=== PATIENT | female | born 1985 | race Caucasian/White ===

== ENCOUNTER 2019-03-21 09:07 | Emergency (ER) | payer OTHER ==
[~2019-03-21] VITALS: Ht 157.5 cm; Wt 68.0 kg
[~2019-03-21 09:07] MED LIST: BACTRIM DS TAB1 EACH PO; CELEXA 20 MG TA20 M1 PO; NORCO 5-325 TA1 EACH PO; PREDNISONE 20 M20 MG PO; SYNTHROID125 MCG PO; VALIUM5 MG PO
[2019-03-21] MEDS ORDERED: METFORMIN HCL500 M3 PO (09:19)
[2019-03-21] MEDS ORDERED: SPIRONOLACTONE25 MG PO (09:19)
[2019-03-21 09:35] LABS: URINE BILIRUBIN NEGATIVE (Negative); URINE BLOOD TRACE (Negative); URINE CLARITY SL CLOUDY; URINE COLOR YELLOW; URINE GLUCOSE-RANDOM NEGATIVE (Negative); URINE KETONES NEGATIVE (Negative); URINE LEUKOCYTES-REFLEX TRACE (Negative); URINE NITRITE-REFLEX NEGATIVE (Negative); URINE PROTEIN NEGATIVE (Negative); URINE SPECIFIC GRAVITY >= 1.030 (1.005-1.030); URINE UROBILINOGEN 0.2 E.U./dl (0.2-1.0)
[2019-03-21 09:37] LABS: HEMATOCRIT 39.3 % (37.0-47.0); HEMOGLOBIN 13.5 gm/dL (12.0-15.0); MCH 33.6 pg (26.0-34.0); MCHC 34.2 g/dL (28.0-37.0); MCV 98.3 fL (80.0-100.0); MPV 8.7 fl. (7.2-11.1); RDW-CV 13.2 % (10.5-14.5); WBC 6.7 thou/uL (4.0-11.0)
[2019-03-21 09:49] LABS: MUCUS 4-6 Moderate strn/LPF (None Seen); SQUAMOUS >10 Many /LPF (0-3)
[2019-03-21 09:50] LABS: BACTERIA-REFLEX >30 Many /HPF (None Seen); CASTS None Seen /LPF (None Seen); URINE RBC 0-2 Rare /HPF (0-2); URINE WBC-REFLEX >25 Many /HPF (0-5)
[2019-03-21 09:51] LABS: CRYSTALS None Seen /LPF (None Seen)
[2019-03-21 10:00] LABS: CALCIUM 8.7 mg/dL (8.5-10.1); CREATININE 1.1 mg/dL (0.6-1.3); POTASSIUM 3.6 mmol/L (3.5-5.1)
[2019-03-21 10:03] LABS: ALBUMIN 3.8 g/dL (3.4-5.0); TOTAL BILIRUBIN 0.2 mg/dL (<0.1-1.0); TOTAL PROTEIN 7.6 g/dL (6.4-8.2)
[2019-03-21] MEDS ORDERED: KEFLEX500 M1 PO (11:13)
[2019-03-21] MEDS ORDERED: NORCO 5-325 TA1 EAC1 PO (11:13)
[2019-03-21] MEDS ORDERED: ZOFRAN ODT4 MG DISSOLVE (11:13)
[2019-03-21 11:19] VITALS: BP 95/57
== END 2019-03-21 11:20 | disposition home or self-care (01) ==
LOC: M.ERS 09:07
PROVIDERS: Emergency Medicine Emergency Medical Services
DX: N12 Tubulo-interstitial nephritis, not specified as acute or chronic (principal); E03.9 Hypothyroidism, unspecified; F32.9 Major depressive disorder, single episode, unspecified; M19.90 Unspecified osteoarthritis, unspecified site